=== PATIENT | male | born 1960 ===

== ENCOUNTER 2017-09-29 16:40 | Emergency (ER) | payer OTHER ==
[2017-09-29 16:40] VITALS: BMI 30.8
--- NOTE | 2017-09-29 17:31 | C.PDOC ---
History Of Present Illness NEW ONSET L HIP/THIGH PAIN X 11 DAYS. NO TRAUMA. WORSE W WT BEAR, HIP MOVEMENT. RELIEVES W REST. DENIES HO CHRONIC BACK PAIN. NO ASSOC WEAK/NUMB, OTHER SX. + RELIEF W TYLENOL. PS DOES ALOT OF DAILY WALKING EXAM MILD DIST NONTOXIC EXT R HIP AROM WO DIFF, WT BEAR WO DIFF NONTEND ATRAUM. L HIP: +PAIN W WT BEAR. LIMITED FLEX TO 90 DUE TO PAIN. LIMITED INT ROTATION DUE TO PAIN. FULL EXT ROTATION WO DIFF. NONTEND. ATRAUM. NEG STRAIGHT LEG BACK AROM WO DIFF. REMAINDER NEG MDM ?HIP ARTHRITIS VS BURSITIS VS SCIATICA. ADVISED NEED FOR OUTPT ORTHO FU, POSSIBLE MRI Time Seen by Provider: 09/29/17 17:11 Chief Complaint (Nursing): Hip Pain History Per: Patient History/Exam Limitations: no limitations Onset/Duration Of Symptoms: Days (11 days) Past Medical History Reviewed: Historical Data, Nursing Documentation, Vital Signs Vital Signs: Last Vital Signs Temp 97.9 F 09/29/17 17:36 Pulse 70 09/29/17 17:36 Resp 16 09/29/17 17:36 BP 135/78 09/29/17 17:36 Pulse Ox 98 09/29/17 17:36 - Medical History PMH: HTN (NOT ON MEDS) Surgical History: Appendectomy Family History: States: No Known Family Hx - Social History Hx Tobacco Use: No Hx Alcohol Use: Yes Hx Substance Use: No - Immunization History Hx Tetanus Toxoid Vaccination: No Hx Influenza Vaccination: No Hx Pneumococcal Vaccination: No Review Of Systems Except As Marked, All Systems Reviewed And Found Negative. Musculoskeletal: Positive for: Other ((+) Left hip/Thigh pain). Negative for: Back Pain, Hand Pain Neurological: Negative for: Weakness, Numbness Physical Exam - Physical Exam Appears: Non-toxic, In Acute Distress (Mild) Skin: Warm, Dry, No Rash Head: Atraumatic, Normacephalic Oral Mucosa: Moist Respiratory: Normal Breath Sounds Back: Normal Inspection, No Straight Leg Raising Extremity: Other (Right Hip - AROM w/p difficulty.Weight bearing w/o difficulty. Nontender atramatic. Left Hip - Pain with weight bearing. Limited flex to 90 due to pain. Limited internal rotation due to pain. Full external rotation w/o difficulty. Nontender. Atramatic.) Neurological/Psych: Oriented x3, Normal Speech, Normal Motor ED Course And Treatment O2 Sat by Pulse Oximetry: 97 (RA) Pulse Ox Interpretation: Normal Medical Decision Making Medical Decision Making: PLAN: * Flexeril PO * Decadron PO * Toradol IM NOTE: ?HIP ARTHRITIS VS BURSITIS VS SCIATICA. ADVISED NEED FOR OUTPT ORTHO FU, POSSIBLE MRI Disposition Counseled Patient/Family Regarding: Diagnosis, Need For Followup, Rx Given - Disposition Referrals: [facility] [Outside] [facility] [Outside] Kristopher Nelson III, MD [Staff Provider] - Disposition: HOME/ ROUTINE Disposition Time: 17:31 Condition: IMPROVED Prescriptions: Cyclobenzaprine [Flexeril] 10 mg PO TID #15 tab Ibuprofen [Motrin] 600 mg PO Q6 #30 tab Instructions: Hip Bursitis (ED), Hip Pain (ED) Forms: [facility] (Polish), Work Excuse - Clinical Impression Clinical Impression: Hip pain - Scribe Statement The provider has reviewed the documentation as recorded by the Ángel Núñez Provider Attestation: All medical record entries made by the Prashanthibjames were at my direction and personally dictated by me. I have reviewed the chart and agree that the record accurately reflects my personal performance of the history, physical exam, medical decision making, and the department course for this patient. I have also personally directed, reviewed, and agree with the discharge instructions and disposition.
[2017-09-29 17:37] VITALS: BP 135/78; PULSE 70; RESP 16; TEMP 97.9
[2017-09-29 19:00] VITALS: O2SAT 97
== END 2017-09-29 17:43 | disposition home or self-care (01) ==
LOC: C.ER 16:40
DX: M25.551 Pain in right hip (principal); I10 Essential (primary) hypertension
CPT/HCPCS: 96372; 99284; J1885; J8540

== ENCOUNTER 2019-02-13 07:31 | Emergency (ER) | payer SELFPAY ==
[2019-02-13 07:33] VITALS: BMI 29.2
[2019-02-13 08:03] VITALS: RESP 20
--- NOTE | 2019-02-13 09:20 | RAD ---
Date of service: 02/13/2019 PROCEDURE: Left Knee Radiographs. HISTORY: Pain. COMPARISON: 12/27/2015. TECHNIQUE: 3 views obtained. FINDINGS: BONES: Bone alignment and mineralization are normal. There is no acute displaced fracture or bone destruction. JOINTS: There is redemonstration of mild tricompartmental degenerative osteoarthrosis with reduced joint spaces, marginal osteophytes and tibial spiking, worse in the medial compartment. JOINT EFFUSION: None. OTHER FINDINGS: None. IMPRESSION: No acute fracture or dislocation. Mild tricompartmental degenerative osteoarthrosis, worse in the medial compartment. No significant interval change.
--- NOTE | 2019-02-13 09:39 | C.PDOC ---
History Of Present Illness 59 y/o male presents to ED complaining of pain in the left knee for the past year. Patient states he has tried over the counter medications but with no relief. He reports he got diclofenac 100mg that still didnt help. He states that the pain has gotten worse for the last 2 weeks and complains that when he walks, he feels his bones are rubbing against each other. Patient denies any other physical complaints. Time Seen by Provider: 02/13/19 07:52 Chief Complaint (Nursing): Lower Extremity Problem/Injury History Per: Patient History/Exam Limitations: no limitations Onset/Duration Of Symptoms: Days Current Symptoms Are (Timing): Still Present Past Medical History Reviewed: Historical Data, Nursing Documentation, Vital Signs Vital Signs: Last Vital Signs Temp 97.6 F 02/13/19 07:34 Pulse 70 02/13/19 07:34 Resp 20 02/13/19 07:34 BP 154/81 H 02/13/19 07:34 Pulse Ox 98 02/13/19 07:34 - Medical History PMH: HTN (NOT ON MEDS) Surgical History: Appendectomy Family History: States: No Known Family Hx - Social History Hx Tobacco Use: No Hx Alcohol Use: Yes Hx Substance Use: No - Immunization History Hx Tetanus Toxoid Vaccination: No Hx Influenza Vaccination: No Hx Pneumococcal Vaccination: No Review Of Systems Except As Marked, All Systems Reviewed And Found Negative. Constitutional: Negative for: Fever Musculoskeletal: Positive for: Other (Left Knee Pain). Negative for: Back Pain Neurological: Negative for: Weakness, Numbness Physical Exam - Physical Exam Appears: Non-toxic, No Acute Distress Skin: Warm, Dry Head: Atraumatic, Normacephalic Eye(s): bilateral: Normal Inspection Oral Mucosa: Moist Neck: Supple Chest: Symmetrical Extremity: Tenderness (left knee diffusely tender to palpation in medial area), No Deformity, No Swelling, Other (no erythema, no warmth, no wound; has pain when flexing the knee) Extremity: Bilateral: Normal Color And Temperature Neurological/Psych: Oriented x3, Normal Speech, Normal Motor, Normal Sensation ED Course And Treatment O2 Sat by Pulse Oximetry: 98 (RA) Pulse Ox Interpretation: Normal - Other Rad Knee XR X-Ray: Read By Radiologist Interpretation: FINDINGS: BONES: Bone alignment and mineralization are normal. There is no acute displaced fracture or bone destruction. JOINTS: There is redemonstration of mild tricompartmental degenerative osteoarthrosis with reduced joint spaces, marginal osteophytes and tibial spiking, worse in the medial compartment. JOINT EFFUSION: None. OTHER FINDINGS: None. IMPRESSION: No acute fracture or dislocation. Mild tricompartmental degenerative osteoarthrosis, worse in the medial compartment. No significant interval change. Progress Note: Left knee XR ordered. Patient was put on a knee brace. Disposition - Disposition Referrals: [facility] [Outside] Kane Jacob MD [Staff Provider] - Disposition: HOME/ ROUTINE Disposition Time: 09:36 Condition: GOOD Additional Instructions: Follow up with PMD/Clinic and Orthopedist/clinic within 2-3 days. Return to ED if feel worse. Prescriptions: traMADol [Ultram] 50 mg PO Q6 #10 tab Instructions: Knee Pain (DC) Forms: [employer] (Azeri) - Clinical Impression Clinical Impression: Knee pain - PA / [employer] LEVEL G[employer]ER / Resident Statement MD/DO has reviewed & agrees with the documentation as recorded. - Scribe Statement The provider has reviewed the documentation as recorded by the Scribjames Sharma All medical record entries made by the Prashanthibjames were at my direction and personally dictated by me. I have reviewed the chart and agree that the record accurately reflects my personal performance of the history, physical exam, medical decision making, and the department course for this patient. I have also personally directed, reviewed, and agree with the discharge instructions and disposition.
[2019-02-13 09:49] VITALS: BP 170/96; PULSE 66; TEMP 97.7
[2019-02-13 11:12] VITALS: O2SAT 98
== END 2019-02-13 09:49 | disposition home or self-care (01) ==
LOC: C.ER 07:31
DX: M25.562 Pain in left knee (principal); I10 Essential (primary) hypertension